=== PATIENT | female | born 1980 | race African-American/Black ===

== ENCOUNTER 2019-11-26 07:59 | Day surgery (SDC) | payer OTHER ==
[2019-11-26] MEDS ORDERED: NS 0.9% VIAL 40 ML ONE (08:24)
[2019-11-26] MEDS ORDERED: LIDOCAINE 1% W/EPI 1:100,000 MDV 20 ML VIAL ONE (08:24)
[2019-11-26] MEDS ORDERED: Mastisol Adhesive Liq ONE (08:24)
[2019-11-26] MEDS ORDERED: GENTAMICIN SULF 80 MG/2ML INJ ONE (08:24)
[2019-11-26] MEDS ORDERED: CEFAZOLIN SODIUM 1 GM/VIAL ONE (08:24)
[2019-11-26] MEDS ORDERED: BACITRACIN 50000 UNIT VIAL ONE ×2 (08:25→08:31)
[2019-11-26] MEDS ORDERED: Ringers Lactate 1,000 ML IV ONE ×4 (08:25→16:30)
[2019-11-26] MEDS ORDERED: EPINEPHRINE/PF 1 MG/ML AMP ONE ×2 (08:27→14:04)
[2019-11-26] MEDS ORDERED: NA CHLORIDE 0.9% 2,000 ML ONE (08:27)
[2019-11-26] MEDS ORDERED: CEFAZOLIN/SWI 1gm 1 GM/10 ML SYR ONE (08:30)
[2019-11-26] MEDS ORDERED: propofoL 200 MG/20 ML VIAL IV ONE (08:47)
[2019-11-26] MEDS ORDERED: MIDAZOLAM HCL 2 MG/2 ML INJ ONE (08:48)
[2019-11-26] MEDS ORDERED: dexAMETHasone 10 MG/ML VIAL ONE (08:48)
[2019-11-26] MEDS ORDERED: FENTANYL CITR 250 MCG/5 ML ONE (08:48)
[2019-11-26] MEDS ORDERED: KETOROLAC 30 MG/ML INJ ONE (08:48)
[2019-11-26] MEDS ORDERED: NS 0.9% VIAL 20 ML ONE (08:48)
[2019-11-26] MEDS ORDERED: ROCURONIUM 50 MG/5 ML VIAL IV ONE (08:48)
[2019-11-26] MEDS ORDERED: LIDOCAINE 2% MPF 5 ML VIAL ONE (08:48)
[2019-11-26] MEDS ORDERED: ONDANSETRON 4 MG/2 ML VIAL ONE ×2 (08:49→16:28)
[2019-11-26] MEDS ORDERED: DIPHENHYDRAMINE 50 MG/ML VIAL ONE (08:49)
[2019-11-26] MEDS ORDERED: VECURONIUM 10 MG/VIAL IV ONE (08:49)
[2019-11-26] MEDS ORDERED: SCOPOLAMINE HYDROBROMIDE PATCH TD ONE (09:31)
[2019-11-26] MEDS ORDERED: MORPHINE 10 MG/ML VIAL ONE (10:22)
[2019-11-26] MEDS ORDERED: EPHEDRINE SULF 50 MG/ML VIAL ONE (11:27)
[2019-11-26] MEDS ORDERED: Phenylephrine HCl 10 MG/ML 1 ML VIAL ONE (14:02)
[2019-11-26] MEDS ORDERED: NS 0.9% VIAL 10 ML ONE (14:03)
[2019-11-26] MEDS ORDERED: MEPERIDINE HCL 25 MG/ML SYR ONE (15:32)
[2019-11-26] MEDS: HYDROMORPHONE HCL 1 MG/ML INJ ONE ×2 (15:41→15:46)
[2019-11-26] MEDS ORDERED: PROMETHAZINE INJ 25 MG/ML AMP ONE (16:04)
[2019-11-26] MEDS ORDERED: HYDROMORPHONE HCL 1 MG/ML INJ ONE (16:04)
[2019-11-26 16:35] VITALS: TEMP 98.5; O2SAT 99
[2019-11-26] MEDS ORDERED: ACETAMINOPHEN 325 MG TABLET ONE (16:47)
[2019-11-26 17:23] VITALS: BP 120/68
--- NOTE | 2019-11-27 01:36 | OP ---
Surgeon: Shantanu Pichrado MD Team Facilitator: Kj. Preoperative Diagnoses: Breast enlargement and descent, and lipodystrophy of abdomen and flanks. Postoperative Diagnoses: Breast enlargement and descent, and lipodystrophy of abdomen and flanks. Procedure Performed: Breast lift with reduction, liposuction of the abdomen and flanks. Anesthesia: General. Operative Note: After satisfactory induction of general anesthesia, the chest was prepped with DuraP rep and dry sterile drapes applied in the usual manner. A 45 mm template was used to outline the rig ht and left areolas. Then, a transverse incision was made and a curvilinear incision was made and a circumareolar incision was made. Intervening skin was de-epithelialized with dermabrader or EpiCut. Both sides were done simultaneously and a transverse incision was made with a scalpel and electrocau jeana. Flaps were elevated towards the sternum, clavicle, and anterior axillary line. Both sides wer e done simultaneously. Then, the inferior incision was made and the de-epithelialized tissue was ret urned to cone after excessive tissue laterally and superiorly were resected. Closure consisted of 2- 0 PDS suture and the right breast straps were elevated at 12 o'clock, 1:30, and 3 o'clock position. The straps were woven in and out the pectoralis muscle back to the base of the cone back to pectorali s muscle back to base of cone and tied themselves with 2-0 PDS. This was done for 12 o'clock and 1:3 0 straps. The 3 o'clock strap was sewn over the sternum at 3 o'clock position with 2-0 Ethibond. Mi rror image procedure was done on the left side. Then, the patient was stapled shut and sat up and th e excess tissue cut off with the dog ears medial and lateral. She returned supine and then electroca utery was used for hemostasis. The wound was irrigated with antibiotic solution. 10 VITO was brought out of the axilla and wound was closed in layers with 3-0 Vicryl subcu, 3-0 PDS running subcuticular, tied from medial lateral and lateral to medial and tied in the vertical meridian of the breast. Bot h sides were done. The patient was sat up. Site for new nipple-areolar complex was marked out. The patient was returned to supine, tissue cored out, and nipple was delivered and sewn with interrupted 4-0 PDS and a 4-0 PDS running subcuticular. Attention was turned to the abdomen and flanks. This w as re-prepped with DuraPrep and dry sterile drapes in the usual manner. A 15 blade was used to make an incision over the umbilicus and over the anterior iliac spines bilaterally at approximately 0.5 cm in length. Then, 3 mm infusion cannula was used. The patient had infusion of 800 right flank, 700 left flank, abdomen. Then, a 4 mm cannula was used to aspirate the right flank 700, left flank 650, and the abdomen 900. These wounds were closed with 4-0 PDS. Liposuction cannula was appl ied. The dressings consisted of tincture of benzoin, Steri-Strips, 5 x 5's, , fluffs, and Bakari wrap. The amount removed from the right breast was 280 g, from the left breast 342 g. The patie nt tolerated the procedure well and returned to Recovery. CT/SEDA Voice ID: [id number] Report ID: [id number]
== END 2019-11-26 17:13 | disposition home or self-care (01) ==
LOC: OR 07:59
PROVIDERS: ATTEND Specialist
PROC: 0J080ZZ Alteration of Abdomen Subcutaneous Tissue and Fascia, Open Approach (ICD-10-PCS; 2019-11-26)
PROC: 0HBV0ZZ Excision of Bilateral Breast, Open Approach (ICD-10-PCS; 2019-11-26)
PROC: 0HSV0ZZ Reposition Bilateral Breast, Open Approach (ICD-10-PCS; principal; 2019-11-26 09:00)
DX: N64.81 Ptosis of breast (principal); L98.7 Excessive and redundant skin and subcutaneous tissue; Z11.59 Encounter for screening for other viral diseases
CPT/HCPCS: 19316; 19318; 15877; 81025; 88305; J2704; J0171 ×2; J2550; J1200; J2370; J1580; J2250; J3010; J1100; J2175; J1170 ×2; J0690 ×2; J7120 ×4; J7030; J2405 ×2